=== PATIENT | female | born 1950 | race Hispanic/Latino ===

== ENCOUNTER 2018-01-09 08:38 | Day surgery (SDC) | payer MEDICARE, OTHER ==
[2018-01-09] MEDS ORDERED: Propofol 10 mg/ml Inj (20 ML) ONE (09:45)
[2018-01-09] MEDS ORDERED: Lactated Ringer's 500 ML IV ONE (10:10)
[2018-01-09 10:51] VITALS: TEMP 97
[2018-01-09 11:09] VITALS: BP 147/84; PULSE 63; RESP 18; O2SAT 97
== END 2018-01-09 11:50 | disposition home or self-care (01) ==
LOC: H.ENDO 08:38
PROVIDERS: ATTEND Internal Medicine Gastroenterology
DX: Z12.11 Encounter for screening for malignant neoplasm of colon (principal); K64.8 Other hemorrhoids; K64.4 Residual hemorrhoidal skin tags; H81.10 Benign paroxysmal vertigo, unspecified ear; Z80.0 Family history of malignant neoplasm of digestive organs
CPT/HCPCS: 45378; J2001; J2704; J7120